=== PATIENT | male | born 2000 | race Caucasian/White ===

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

== ENCOUNTER 2022-01-18 09:44 | Emergency (ER) | payer OTHER, SELFPAY ==
--- NOTE | 2022-01-18 11:10 | ER ---
Nurse's Notes [facility] Name: Slim Soria Age: 21 yrs Sex: Male : 2000 Arrival Date: 01/18/2022 Time: 09:45 Bed Waiting Private MD: Diagnosis: ED Course: 01/18 09:45 Patient arrived in ED. am2 10:13 Patient's name was called from ER lobby. No response. Unable to locate patient. Will jl7 disposition as left without being seen by a provider. 10:51 Jeison Casiano NP is PHCP. pm1 10:51 Raymond Gamboa MD is Attending Physician. pm1 10:54 Patient's name was called from ER lobby. No response. Unable to locate patient. Will jl7 disposition as left without being seen by a provider. 11:10 Patient's name was called from ER lobby. No response. Unable to locate patient. Will jl7 disposition as left without being seen by a provider. Administered Medications: No medications were administered Outcome: 11:10 Patient left the ED. jl7 Signatures: Jeison Casiano NP [employer] INSPECTOR pm1 Theodore Saez RN RN jl7 Catherine Gallardo am2
== END 2022-01-18 11:10 | disposition left against medical advice (07) ==
LOC: ER 09:44
DX: Z02.9 Encounter for administrative examinations, unspecified (principal)

== ENCOUNTER 2022-06-16 12:19 | Emergency (ER) | payer OTHER ==
[2022-06-16 13:04] LABS: Absolute Lymphocytes (CBC) 1.3 K/uL (0.7-4.9); Hematocrit 45.2 % (39.6-49.0); Lymphocytes % 11.7 % (15.3-44.8); MCV 85.5 fL (80-100); MPV 8.4 fL (7.6-11.3); RBC Red Blood Cell Count 5.29 M/uL (4.33-5.43)
[2022-06-16] MEDS ORDERED: Ringers Lactate 1,000 ML IV ONE (13:07)
[2022-06-16] MEDS ORDERED: HALOPERIDOL LACT 5 MG/ML INJ ONE (13:07)
[2022-06-16 13:12] LABS: Urine Blood Negative (Negative); Urine Glucose Negative (Negative); Urine Protein 3+ (Negative); Urine Specific Gravity 1.025 (1.005-1.030)
[2022-06-16 13:24] LABS: Albumin 4.5 g/dL (3.4-5.0); Potassium 3.6 mmol/L (3.5-5.1); Protein, Total 8.6 g/dL (6.4-8.2)
[2022-06-16 13:32] LABS: Barbiturates NEGATIVE (NEGATIVE); Benzodiazepines NEGATIVE (NEGATIVE); Cocaine NEGATIVE (NEGATIVE); METHAMPHETAM NEGATIVE (NEGATIVE); Methadone NEGATIVE (NEGATIVE); Opiates NEGATIVE (NEGATIVE); Phencyclidine NEGATIVE (NEGATIVE); THC Cannibis POSITIVE (NEGATIVE)
--- NOTE | 2022-06-16 14:42 | RAD REPORT ---
EXAM DESCRIPTION: CT - Abdomen Pelvis W Contrast - 06/16/2022 2:25 pm CLINICAL HISTORY: Abdominal pain COMPARISON: none. TECHNIQUE: Computed axial tomography of the abdomen pelvis was obtained. 100 cc Isovue-300 was admin istered intravenously. Oral contrast was not requested which limits evaluation of bowel and appendix All CT scans are performed using dose optimization technique as appropriate and may include automated exposure control or mA/KV adjustment according to patient size. FINDINGS: The liver, spleen, pancreas, adrenal and kidneys appear unremarkable. There is no evidence of diverticulitis. The appendix is not seen. Fluid is present within nondilated bowel IMPRESSION: Fluid within nondilated bowel is nonspecific but may indicate an enteritis
--- NOTE | 2022-06-16 14:46 | ER ---
Nurse's Notes [facility] Name: Slim Soria Age: 21 yrs Sex: Male : 2000 Arrival Date: 06/16/2022 Time: 12:20 Bed 11 Private MD: Diagnosis: Enteritis Presentation: 06/16 12:44 Chief complaint: Patient states: nausea/vomiting that began 2 days ago, unable to aa5 tolerate food. Pt also reports diarrhea and abd pain. Coronavirus screen: diarrhea, vomiting. Ebola Screen: Patient denies travel to an Ebola-affected area in the 21 days before illness onset. Initial Sepsis Screen: Does the patient meet any 2 criteria? No. Patient's initial sepsis screen is negative. Does the patient have a suspected source of infection? No. Patient's initial sepsis screen is negative. Risk Assessment: Do you want to hurt yourself or someone else? Patient reports no desire to harm self or others. Onset of symptoms was June 2022. 12:44 Method Of Arrival: Ambulatory aa5 12:44 Acuity: KING 3 aa5 Triage Assessment: 13:18 General: Appears in no apparent distress. Behavior is calm, cooperative. GI: Reports em6 lower abdominal pain. Historical: - Allergies: 13:18 Amoxicillin; em6 - PMHx: 12:44 None; aa5 - Immunization history:: Adult Immunizations unknown. - Social history:: Smoking status: Reported history of juuling and/or vaping. Screenin:17 Abuse screen: Denies threats or abuse. Nutritional screening: No deficits noted. em6 Tuberculosis screening: No symptoms or risk factors identified. Fall Risk IV access (20 points). Total Treviño Fall Scale indicates No Risk (0-24 pts). Assessment: 13:15 General: Appears in no apparent distress. comfortable, Behavior is cooperative. Pain: em6 Complains of pain in right lower quadrant and left lower quadrant Pain does not radiate. Pain currently is 6 out of 10 on a pain scale. Quality of pain is described as sharp, Pain began suddenly, Is continuous. Neuro: Barksdale Agitation-Sedation Scale (RASS): 0 - Alert and Calm Level of Consciousness is awake, alert, obeys commands, Oriented to person, place, time, situation. Cardiovascular: Heart tones present Patient's skin is warm and dry. Respiratory: Airway is patent Respiratory effort is even, unlabored, Respiratory pattern is regular, symmetrical. GI: Abdomen is flat, non-distended, Abd is soft and non tender X 4 quads. : No signs and/or symptoms were reported regarding the genitourinary system. EENT: No signs and/or symptoms were reported regarding the EENT system. Derm: No signs and/or symptoms reported regarding the dermatologic system. Musculoskeletal: Circulation, motion, and sensation intact. Range of motion: intact in all extremities. 14:15 Reassessment: Patient appears in no apparent distress at this time. No changes from em6 previously documented assessment. Patient and/or family updated on plan of care and expected duration. Pain level reassessed. Vital Signs: 12:44 BP 115 / 89; Pulse 67; Resp 16 S; Temp 99.3(TE); Pulse Ox 100% on R/A; Height 6 ft. aa5 (182.88 cm) (R); 12:46 Weight 59.42 kg (M); aa5 15:03 BP 140 / 80; Pulse 60; Resp 16; Pulse Ox 100% on R/A; em6 12:46 Body Mass Index 17.77 (59.42 kg, 182.88 cm) aa5 ED Course: 12:20 Patient arrived in ED. am2 12:30 Kasi Rowley PA is PHCP. [facility] 12:30 Raymond Gamboa MD is Attending Physician. jmm 12:44 Arm band placed on. aa5 12:45 Triage completed. aa5 13:18 Patient has correct armband on for positive identification. Bed in low position. Call em6 light in reach. Side rails up X 1. Adult w/ patient. 14:25 CT Abd/Pelvis - IV Contrast Only In Process Unspecified. EDMS 15:03 No provider procedures requiring assistance completed. IV discontinued, intact, em6 bleeding controlled, No redness/swelling at site. Pressure dressing applied. Administered Medications: 13:06 Drug: HALdol (haloperidol) 5 mg Route: IVP; Site: right antecubital; em6 14:00 Follow up: Response: No adverse reaction em6 13:07 Drug: Lactated Ringers Solution 1000 ml Route: IV; Rate: 1000 bolus; Site: right em6 antecubital; 14:10 Follow up: Response: No adverse reaction; IV Status: Completed infusion; IV Intake: em6 1000ml Medication: 13:18 VIS not applicable for this client. em6 Intake: 14:10 IV: 1000ml; Total: 1000ml. em6 Outcome: 14:46 Discharge ordered by . jose 15:03 Discharged to home ambulatory, with family. em6 15:03 Condition: stable 15:03 Discharge instructions given to patient, family, Instructed on discharge instructions, follow up and referral plans. medication usage, Demonstrated understanding of instructions, follow-up care, medications, Prescriptions given X 2. 15:04 Patient left the ED. em6 Signatures: Dispatcher [employer] EDMS Kasi Rowley PA PA jmm Calderon, Audri, RN RN aa5 Catherine Gallardo Erika, RN RN em6 Corrections: (The following items were deleted from the chart) 12:44 12:44 PSHx: None; aa5 aa5 12:44 12:44 Social history: Smoking status: Patient denies any tobacco usage or history of. aa5 aa5 13:18 12:44 Allergies: Amoxicillin; aa5 em6
--- NOTE | 2022-06-16 14:46 | EDPHYS ---
Physician Documentation [facility] Name: Slim Soria Age: 21 yrs Sex: Male : 2000 Arrival Date: 06/16/2022 Time: 12:20 Bed 11 Private MD: ED Physician Raymond Gamboa Historical: - Allergies: 06/16 13:18 Amoxicillin; em6 - PMHx: 12:44 None; aa5 - Immunization history:: Adult Immunizations unknown. - Social history:: Smoking status: Reported history of juuling and/or vaping. Vital Signs: 12:44 BP 115 / 89; Pulse 67; Resp 16 S; Temp 99.3(TE); Pulse Ox 100% on R/A; Height 6 ft. aa5 (182.88 cm) (R); 12:46 Weight 59.42 kg (M); aa5 15:03 BP 140 / 80; Pulse 60; Resp 16; Pulse Ox 100% on R/A; em6 12:46 Body Mass Index 17.77 (59.42 kg, 182.88 cm) aa5 MDM: 12:54 Patient medically screened. [facility] 14:45 Data reviewed: vital signs, nurses notes. Counseling: I had a detailed discussion with [facility] the patient and/or guardian regarding: the historical points, exam findings, and any diagnostic results supporting the discharge/admit diagnosis, lab results, radiology results, the need for outpatient follow up, to return to the emergency department if symptoms worsen or persist or if there are any questions or concerns that arise at home. 06/16 12:49 Order name: CBC with Diff; Complete Time: 13:10 [facility] 06/16 12:49 Order name: CMP; Complete Time: 13:24 [facility] 06/16 12:49 Order name: Lipase; Complete Time: 13:24 [facility] 06/16 12:49 Order name: UDS; Complete Time: 13:37 [facility] 06/16 13:12 Order name: Urine Dipstick-Ancillary; Complete Time: 13:13 [facility] 06/16 14:09 Order name: CT Abd/Pelvis - IV Contrast Only; Complete Time: 14:45 [facility] 06/16 12:49 Order name: IV Saline Lock; Complete Time: 12:51 [facility] 06/16 12:49 Order name: Labs collected and sent; Complete Time: 12:51 [facility] 06/16 12:49 Order name: Urine Dipstick-Ancillary (obtain specimen); Complete Time: 13:15 [facility] Administered Medications: 13:06 Drug: HALdol (haloperidol) 5 mg Route: IVP; Site: right antecubital; em6 14:00 Follow up: Response: No adverse reaction em6 13:07 Drug: Lactated Ringers Solution 1000 ml Route: IV; Rate: 1000 bolus; Site: right em6 antecubital; 14:10 Follow up: Response: No adverse reaction; IV Status: Completed infusion; IV Intake: em6 1000ml Disposition Summary: 06/16/22 14:46 Discharge Ordered Location: Home [facility] Condition: Stable [facility] Diagnosis - Enteritis [facility] Followup: [facility] - With: Private Physician - When: 2 - 3 days - Reason: Recheck today's complaints, Continuance of care, Re-evaluation by your physician Discharge Instructions: - Discharge Summary Sheet [facility] - Diarrhea, Adult [facility] - Vomiting, Adult [facility] Forms: - Medication Reconciliation Form [facility] - Thank You Letter [facility] - Antibiotic Education [facility] - Prescription Opioid Use [facility] Prescriptions: - dicyclomine 20 mg Oral Tablet - take 1 tablet by ORAL route 4 times per day; 20 tablet; Refills: 0, Product [facility] Selection Permitted - ondansetron 4 mg Oral tablet,disintegrating - place 1 tablet by TRANSLINGUAL route every 4-6 hours As needed; 30 tablet; [facility] Refills: 0, Product Selection Permitted Signatures: Dispatcher [employer] Kasi Pardo PA PA [facility] Nga Truong RN RN aa5 Bernarda Bell RN RN em6 Corrections: (The following items were deleted from the chart) 12:44 12:44 PSHx: None; aa5 aa5 12:44 12:44 Social history: Smoking status: Patient denies any tobacco usage or history of. aa5 aa5 13:18 12:44 Allergies: Amoxicillin; aa5 em6
[2022-06-16 15:22] VITALS: TEMP 99.3; O2SAT 100
[2022-06-16 15:24] VITALS: BP 140/80
== END 2022-06-16 15:04 | disposition home or self-care (01) ==
LOC: ER 12:19
DX: K52.9 Noninfective gastroenteritis and colitis, unspecified (principal); Z88.1 Allergy status to other antibiotic agents
CPT/HCPCS: 96361; 85025; 36415; 81003; 83690; 80053; 80307; 74177; 96374; 99283; J1630; J7120

== ENCOUNTER 2022-08-16 11:15 | Emergency (ER) | payer OTHER ==
[2022-08-16] MEDS ORDERED: ONDANSETRON 4 MG/2 ML VIAL ONE (12:08)
[2022-08-16] MEDS ORDERED: NA CHLORIDE 0.9% 1,000 ML ONE (12:08)
[2022-08-16 12:24] LABS: Urine Blood Negative (Negative); Urine Glucose Negative (Negative); Urine Protein 2+ (Negative); Urine Specific Gravity >=1.030 (1.005-1.030); Urine pH 5.5 (5.0-7.0)
[2022-08-16 12:25] LABS: Absolute Lymphocytes (CBC) 0.9 K/uL (0.7-4.9); Hematocrit 42.9 % (39.6-49.0); Lymphocytes % 15.4 % (15.3-44.8); MCV 86.3 fL (80-100); MPV 7.7 fL (7.6-11.3); RBC Red Blood Cell Count 4.97 M/uL (4.33-5.43)
[2022-08-16 12:46] LABS: Albumin 4.3 g/dL (3.4-5.0); Bilirubin Total 0.9 mg/dL (0.2-1.0); Protein, Total 8.1 g/dL (6.4-8.2)
[2022-08-16 12:55] LABS: Barbiturates NEGATIVE (NEGATIVE); Benzodiazepines NEGATIVE (NEGATIVE); Cocaine NEGATIVE (NEGATIVE); METHAMPHETAM NEGATIVE (NEGATIVE); Methadone NEGATIVE (NEGATIVE); Opiates NEGATIVE (NEGATIVE); Phencyclidine NEGATIVE (NEGATIVE); THC Cannibis POSITIVE (NEGATIVE)
--- NOTE | 2022-08-16 13:08 | EDPHYS ---
Physician Documentation [facility] Name: Slim Soria Age: 21 yrs Sex: Male : 2000 Arrival Date: 08/16/2022 Time: 11:19 Bed 24 Private MD: ED Physician Dea Donis HPI: 08/16 13:00 This 21 yrs old Male presents to ER via Ambulatory with complaints of nausea, jl9 Decreased Appetite since starting suboxone 2 weeks ago. . 13:00 Onset: The symptoms/episode began/occurred 2 week(s) ago. Possible causes:. The jl9 symptoms are aggravated by nothing. The symptoms are alleviated by nothing. Associated signs and symptoms: Pertinent positives: nausea. Historical: - Allergies: 11:33 Amoxicillin; vg1 - Home Meds: 11:33 Suboxone [Active]; vg1 - PMHx: 11:33 None; vg1 - PSHx: 11:33 None; vg1 - Immunization history:: Client reports having NOT received the Covid vaccine. - Social history:: Smoking status: Reported history of juuling and/or vaping. Patient uses street drugs, marijuana. ROS: 13:01 Constitutional: Negative for fever, chills, and weight loss, Eyes: Negative for injury, jl9 pain, redness, and discharge, ENT: Negative for injury, pain, and discharge, Neck: Negative for injury, pain, and swelling, Cardiovascular: Negative for chest pain, palpitations, and edema, Respiratory: Negative for shortness of breath, cough, wheezing, and pleuritic chest pain. 13:01 Back: Negative for injury and pain, : Negative for injury, bleeding, discharge, and swelling, MS/Extremity: Negative for injury and deformity, Skin: Negative for injury, rash, and discoloration, Neuro: Negative for headache, weakness, numbness, tingling, and seizure, Psych: Negative for depression, anxiety, suicide ideation, homicidal ideation, and hallucinations, Allergy/Immunology: Negative for hives, rash, and allergies, Endocrine: Negative for neck swelling, polydipsia, polyuria, polyphagia, and marked weight changes, Hematologic/Lymphatic: Negative for swollen nodes, abnormal bleeding, and unusual bruising. 13:01 Abdomen/GI: Positive for nausea, vomiting. Exam: 13:01 Constitutional: This is a well developed, well nourished patient who is awake, alert, jl9 and in no acute distress. Head/Face: Normocephalic, atraumatic. Eyes: Pupils equal round and reactive to light, extra-ocular motions intact. Lids and lashes normal. Conjunctiva and sclera are non-icteric and not injected. Cornea within normal limits. Periorbital areas with no swelling, redness, or edema. ENT: Mucous membranes moist. Neck: Trachea midline, no thyromegaly or masses palpated, and no cervical lymphadenopathy. Supple, full range of motion without nuchal rigidity, or vertebral point tenderness. No Meningismus. Chest/axilla: Normal chest wall appearance and motion. Nontender with no deformity. No lesions are appreciated. Cardiovascular: Regular rate and rhythm with a normal S1 and S2. No gallops, murmurs, or rubs. Normal PMI, no JVD. No pulse deficits. Respiratory: Lungs have equal breath sounds bilaterally, clear to auscultation and percussion. No rales, rhonchi or wheezes noted. No increased work of breathing, no retractions or nasal flaring. Abdomen/GI: Soft, non-tender, with normal bowel sounds. No distension or tympany. No guarding or rebound. No evidence of tenderness throughout. Back: No spinal tenderness. No costovertebral tenderness. Full range of motion. Skin: Warm, dry with normal turgor. Normal color with no rashes, no lesions, and no evidence of cellulitis. MS/ Extremity: Pulses equal, no cyanosis. Neurovascular intact. Full, normal range of motion. Neuro: Awake and alert, GCS 15, oriented to person, place, time, and situation. Cranial nerves II-XII grossly intact. Motor strength 5/5 in all extremities. Sensory grossly intact. Cerebellar exam normal. Normal gait. Psych: Awake, alert, with orientation to person, place and time. Behavior, mood, and affect are within normal limits. Vital Signs: 11:29 BP 134 / 77; Pulse 60; Resp 16; Temp 97.9; Pulse Ox 97% on R/A; Weight 58.97 kg; Height vg1 6 ft. 0 in. (182.88 cm); Pain 0/10; 12:25 BP 143 / 92; Pulse 51; Resp 16; Pulse Ox 100% ; tp1 13:17 BP 136 / 97; Pulse 49; Resp 16; Pulse Ox 100% on R/A; tp1 11:29 Body Mass Index 17.63 (58.97 kg, 182.88 cm) vg1 MDM: 11:28 Patient medically screened. jl9 13:02 Data reviewed: vital signs, nurses notes. Counseling: I had a detailed discussion with jl9 the patient and/or guardian regarding: the historical points, exam findings, and any diagnostic results supporting the discharge/admit diagnosis, lab results, the need for outpatient follow up, to return to the emergency department if symptoms worsen or persist or if there are any questions or concerns that arise at home. 08/16 11:23 Order name: Flu; Complete Time: 12:39 [facility] 08/16 11:36 Order name: CBC with Diff; Complete Time: 12:39 9 08/16 11:36 Order name: CMP; Complete Time: 13:00 9 08/16 11:41 Order name: UDS; Complete Time: 13:00 [facility] 08/16 12:24 Order name: Urine Dipstick-Ancillary; Complete Time: 12:39 EDMS 08/16 11:23 Order name: Urine Dipstick-Ancillary (obtain specimen); Complete Time: 12:24 9 08/16 11:36 Order name: Saline Lock; Complete Time: 12:24 [facility] Administered Medications: 12:16 Drug: NS 0.9% 1000 ml Route: IV; Rate: 1000 ml; Site: right antecubital; tp1 13:16 Follow up: IV Status: Completed infusion; IV Intake: 1000ml tp1 12:17 Drug: Ondansetron 4 mg Route: IVP; Site: right antecubital; tp1 13:17 Follow up: Response: Nausea is decreased tp1 Disposition: 15:35 STAFF ATTESTATION STATEMENT: I was immediately available onsite in the emergency sd2 department for consultation in the care of this patient. I did not see or examine this patient. Dea Donis MD. Disposition Summary: 08/16/22 13:07 Discharge Ordered Location: Home jl9 Condition: Stable jl9 Diagnosis - Nausea with vomiting, unspecified jl9 Followup: jl9 - With: Private Physician - When: 1 - 2 days - Reason: Recheck today's complaints, Continuance of care, Re-evaluation by your physician Discharge Instructions: - Discharge Summary Sheet jl9 - Nausea and Vomiting, Adult jl9 Forms: - Medication Reconciliation Form jl9 - Thank You Letter jl9 - Antibiotic Education jl9 - Prescription Opioid Use jl9 Prescriptions: - ondansetron 8 mg Oral tablet,disintegrating - take 1 tablet by ORAL route every 8 hours As needed; 30 tablet; Refills: 0, jl9 Product Selection Permitted Signatures: Dispatcher [employer] Amaya Srivastava RN RN vg1 Lucía Pettit RN RN tp1 Trevor Greenfield jl9 Dea Donis MD MD sd2 Corrections: (The following items were deleted from the chart) 11:33 11:33 Home Meds: None; vg1 vg1 13:01 13:00 This 21 yrs old Male presents to ER via Ambulatory with complaints of jl9 Vomiting, Decreased Appetite since starting suboxone 2 weeks ago. . jl9
--- NOTE | 2022-08-16 13:08 | ER ---
Nurse's Notes [facility] Name: Slim Soria Age: 21 yrs Sex: Male : 2000 Arrival Date: 08/16/2022 Time: 11:19 Bed 24 Private MD: Diagnosis: Nausea with vomiting, unspecified Presentation: 08/16 11:29 Chief complaint: Patient states: Vomiting, dehydration, and decreased appetitive. vg1 Denies ABD pain. 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 Has been taking Suboxone for about two weeks. Coronavirus screen: Vaccine status: Patient reports being unvaccinated. Client denies travel out of the [place] in the last 14 days. Ebola Screen: Patient negative for fever greater than or equal to 101.5 degrees Fahrenheit, and additional compatible Ebola Virus Disease symptoms Patient denies exposure to infectious person. Initial Sepsis Screen: Does the patient meet any 2 criteria? No. Patient's initial sepsis screen is negative. Does the patient have a suspected source of infection? No. Patient's initial sepsis screen is negative. Risk Assessment: Do you want to hurt yourself or someone else? Patient reports no desire to harm self or others. Onset of symptoms was August 14, 2022. 11:29 Method Of Arrival: Ambulatory 1 11:29 Acuity: KING 3 vg1 Triage Assessment: 11:33 General: Appears uncomfortable, Behavior is calm, cooperative. Pain: Denies pain. vg1 Neuro: Level of Consciousness is awake, alert, obeys commands, Oriented to person, place, time, situation. GI: Reports nausea, vomiting. Historical: - Allergies: 11:33 Amoxicillin; vg1 - Home Meds: 11:33 Suboxone [Active]; vg1 - PMHx: 11:33 None; vg1 - PSHx: 11:33 None; vg1 - Immunization history:: Client reports having NOT received the Covid vaccine. - Social history:: Smoking status: Reported history of juuling and/or vaping. Patient uses street drugs, marijuana. Screenin:39 Abuse screen: Denies threats or abuse. Denies injuries from another. Nutritional tp1 screening: No deficits noted. Tuberculosis screening: No symptoms or risk factors identified. Fall Risk None identified. Assessment: 11:38 General: Appears in no apparent distress. comfortable, Behavior is calm, cooperative. tp1 Pain: Denies pain. Neuro: Level of Consciousness is awake, alert, obeys commands. Cardiovascular: Patient's skin is warm and dry. Respiratory: Airway is patent Respiratory effort is even, unlabored. GI: Abdomen is flat, non-distended, Abd is soft and non tender Reports nausea, vomiting, Patient currently denies diarrhea. : No signs and/or symptoms were reported regarding the genitourinary system. Reports normal urinary habits. EENT: No signs and/or symptoms were reported regarding the EENT system. EENT: Denies nasal congestion. Derm: Skin is pink, warm \\T\\ dry. Musculoskeletal: Circulation, motion, and sensation intact. 12:25 Reassessment: Patient appears in no apparent distress at this time. No changes from tp1 previously documented assessment. Patient and/or family updated on plan of care and expected duration. Pain level reassessed. Patient is alert, oriented x 3, equal unlabored respirations, skin warm/dry/pink. Patient denies pain at this time. Vital Signs: 11:29 BP 134 / 77; Pulse 60; Resp 16; Temp 97.9; Pulse Ox 97% on R/A; Weight 58.97 kg; Height vg1 6 ft. 0 in. (182.88 cm); Pain 0/10; 12:25 BP 143 / 92; Pulse 51; Resp 16; Pulse Ox 100% ; tp1 13:17 BP 136 / 97; Pulse 49; Resp 16; Pulse Ox 100% on R/A; tp1 11:29 Body Mass Index 17.63 (58.97 kg, 182.88 cm) vg1 ED Course: 11:19 Patient arrived in ED. as 11:22 [facility] [email or web address] 11:23 Dea Donis MD is Attending Physician. [email or web address] 11:28 Lucía Pettit, TALON is Primary Nurse. tp1 11:33 Triage completed. vg1 11:33 Arm band placed on. vg1 11:34 Patient has correct armband on for positive identification. Bed in low position. Call vg1 light in reach. Side rails up X 1. Adult w/ patient. 11:38 Flu Sent. tp1 11:39 Pulse ox on. NIBP on. tp1 12:15 Inserted saline lock: 20 gauge in right antecubital area, using aseptic technique. tp1 Blood collected. 12:15 Urine collected: clean catch specimen, carlos colored. tp1 12:25 No provider procedures requiring assistance completed. tp1 13:17 IV discontinued, intact, bleeding controlled, No redness/swelling at site. Pressure tp1 dressing applied. Administered Medications: 12:16 Drug: NS 0.9% 1000 ml Route: IV; Rate: 1000 ml; Site: right antecubital; tp1 13:16 Follow up: IV Status: Completed infusion; IV Intake: 1000ml tp1 12:17 Drug: Ondansetron 4 mg Route: IVP; Site: right antecubital; tp1 13:17 Follow up: Response: Nausea is decreased tp1 Medication: 12:25 VIS not applicable for this client. tp1 Intake: 13:16 IV: 1000ml; Total: 1000ml. tp1 Outcome: 13:07 Discharge ordered by MD. rodas 13:18 Discharged to home ambulatory, with family. tp1 13:18 Condition: good 13:18 Discharge instructions given to patient, Instructed on discharge instructions, follow up and referral plans. medication usage, Demonstrated understanding of instructions, follow-up care, medications, Prescriptions given X 1. 13:18 Patient left the ED. tp1 Signatures: Francisca Bell Victoria RN RN [email or web address] Lucía Pettit RN RN tp1 Trevor [email or web address] Corrections: (The following items were deleted from the chart) 11:33 11:33 Home Meds: None; vg1 vg1
[2022-08-16 13:23] VITALS: TEMP 97.9
[2022-08-16 13:24] VITALS: O2SAT 100
[2022-08-16 13:25] VITALS: BP 136/97
== END 2022-08-16 13:18 | disposition home or self-care (01) ==
LOC: ER 11:16
DX: R11.2 Nausea with vomiting, unspecified (principal)
CPT/HCPCS: 96361; 85025; 36415; 81003; 80053; 80307; 87804 ×2; 96374; 99284; J7030; J2405